=== PATIENT | male | born 1980 | race Hispanic/Latino ===

== ENCOUNTER 2018-10-09 15:43 | Emergency (ER) | payer OTHER ==
--- NOTE | 2018-10-09 18:43 | RAD ---
FIFTH TOE LEFT FOOT THREE VIEWS: History: Injury to fifth toe with pain. FINDINGS: No evidence of fracture or dislocation. IMPRESSION: No acute abnormality identified. POS: [facility]
== END 2018-10-09 17:30 | disposition home or self-care (01) ==
LOC: ERS 15:43
DX: M79.675 Pain in left toe(s) (principal); L84 Corns and callosities; Z87.891 Personal history of nicotine dependence